=== PATIENT | female | born 1980 | race African-American/Black ===

== ENCOUNTER 2022-07-23 00:41 | Emergency (ER) | payer SELFPAY ==
[2022-07-23 02:09] LABS: Barbiturates NEGATIVE (NEGATIVE); Benzodiazepines NEGATIVE (NEGATIVE); Cocaine NEGATIVE (NEGATIVE); METHAMPHETAM NEGATIVE (NEGATIVE); Methadone NEGATIVE (NEGATIVE); Opiates NEGATIVE (NEGATIVE); Phencyclidine NEGATIVE (NEGATIVE); THC Cannibis NEGATIVE (NEGATIVE)
[2022-07-23 02:16] LABS: Absolute Lymphocytes (CBC) 3.2 K/uL (0.7-4.9); Hematocrit 41.5 % (36.0-45.0); Lymphocytes % 47.5 % (15.3-44.8); MCV 97.7 fL (80-100); MPV 6.5 fL (7.6-11.3); RBC Red Blood Cell Count 4.25 M/uL (3.86-4.86)
[2022-07-23 02:19] LABS: Protime INR 1.01
[2022-07-23 02:32] LABS: ALT/SGPT 31 U/L (13-56); AST/SGOT 24 U/L (15-37); Albumin 3.9 g/dL (3.4-5.0); Alkaline Phosphatase 78 U/L (45-117); BUN Blood Urea Nitrogen 9 mg/dL (7-18); Bicarbonate 27 mmol/L (21-32); Bilirubin Direct 0.2 mg/dL (0-0.2); Bilirubin Total 0.6 mg/dL (0.2-1.0); Glomerular Filtration Rate 99 ml/min (=/>90); Glucose Level 94 mg/dL (74-106); Potassium 4.3 mmol/L (3.5-5.1); Sodium Level 142 mmol/L (136-145)
--- NOTE | 2022-07-23 04:06 | ER ---
Nurse's Notes [facility] Name: Laura Blake Age: 42 yrs Sex: Female : 1980 Arrival Date: 07/23/2022 Time: 00:52 Bed 18 Private MD: Diagnosis: Alcohol abuse with intoxication Presentation: 07/23 00:50 Chief complaint: Patient states: PT STATES SHE IS SO TIRED AND OVERWHELMED. FEELS LIKE jj7 SHE IS THE DISAPPOINTMENT OF THE FAMILY. SHE KNEW SHE WAS GOING TO BREAK AND SHE WAS WAITING TO SEE A PSYCHIATRIST AFTER THE NEW YEAR IN JULY. STATES SHE HAS BEEN DRINKING MORE THAN USUAL AND WHEN SHE DRINKS SHE DOESN'T NOW WHAT SHE DOES. STATES " I DID NOT WANT TO BE HERE ANY MORE WHAT'S THE POINT OF BEING HERE SINCE I'M A BURDEN ON MY FAMILY". PT HASN'T STATED VERBALLY SHE WANTED TO OR KILL HERSELF. EMS states: EMS STATES DISPATCH GOT A CALL FROM /SIG OTHER THAT SHE CALLED HIM AND TOLD HIM SHE DIDN'T WANT TO BE HERE ANY MORE AND HUNG UP THE PHONE. THEY STATE WHEN THEY ARRIVED AT HER RESIDENCE SHE WAS ONLY RESPONSE TO PAINFUL STIMULI WITH A GCS OF 9. STATES THERE WHERE PILLS AND COULD HAVE BEEN A POSSIBLE OVERDOSE. Coronavirus screen: At this time, the client does not indicate any symptoms associated with coronavirus-19. Ebola Screen: No symptoms or risks identified at this time. Initial Sepsis Screen: Does the patient meet any 2 criteria? No. Patient's initial sepsis screen is negative. Does the patient have a suspected source of infection? No. Patient's initial sepsis screen is negative. Risk Assessment: Do you want to hurt yourself or someone else? Patient reports desire/thoughts of hurting themselves or someone else. Provider notified. Onset of symptoms is unknown. Care prior to arrival: IV initiated. Glucose check: 109. 00:50 Method Of Arrival: EMS: [facility] jj7 00:50 Acuity: ALEX 2 jj7 Triage Assessment: 00:50 General: Appears distressed, Behavior is anxious, crying, Smells of alcohol, Reports jj7 Denies. Neuro: Reports. Historical: - Allergies: 01:34 Geodon; jj7 01:34 Zyprexa; jj7 - PMHx: 01:34 Anxiety; Depressive disorder; jj7 - PSHx: 01:34 section; jj7 - Immunization history:: Client reports having NOT received the Covid vaccine. Flu vaccine is not up to date. - Social history:: Smoking status: Patient reports the use of cigarette tobacco products, smokes 1.5 packs per day, Patient uses alcohol, on a daily basis. patient/guardian reports recent binge of alcohol consumption. Screenin:09 [facility] ED Fall Risk Assessment (Adult) History of falling in the last 3 months, jj7 including since admission No falls in past 3 months (0 pts) Confusion or Disorientation No (0 pts) Intoxicated or Sedated Yes (3 pts) Impaired Gait Yes (1 pt) Mobility Assist Device Used No (0 pt) Altered Elimination No (0 pt) Score/Fall Risk Level 3 or more points = High Risk Oriented to surroundings, Maintained a safe environment, Provided non-skid footwear, Implemented a Fall Risk Plan of Care, Utilized family, sitter, or virtual sluice tender as indicated. Abuse screen: Denies threats or abuse. Nutritional screening: No deficits noted. Tuberculosis screening: No symptoms or risk factors identified. Assessment: 00:50 Reassessment: PT STATES SHE REFUSES TO ANSWER ANY QUESTIONS ON IF SHE TOOK ANY PILLS jj7 WITH HER ETOH UNTIL FAMILY MEMBERS ARE PRESENT. Pain: Denies pain. 01:23 General: Smells of alcohol. tw5 02:55 Reassessment: DR SAUCEDO STATES IF PT STATES SHE IS NOT SUICIDAL, HAS SOMEWHERE SAFE TO jj7 GO. PT CAN BE DISCHARGED. 03:00 Reassessment: MOTHER, BROTHER AND SON AT BEDSIDE TO SPEAK WITH PT. MOTHER AD BROTHER jj7 STEP OUT THE ROOM TO INFORM THIS NURSE AND PA PAGE THAT PT IS SUICIDAL AND THAT SHE NEEDS MORE INTENSIVE HELP AND NEEDS ADMISSION. THEY STATE SHE TOLD HER MALE FRIEND SHE TOOK PILLS LACES IN [employer]. SHE HAS BEEN SEEING PSYCHIATRIC HELP FOR AT LEAST 12 YRS. 04:06 Reassessment: PT STATES SHE WANTS TO GO HOME. SHE IS NOT SUICIDAL AND HAS NOT jj7 INTENTIONS ON HARMING HERSELF. DR SAUCEDO NOW AT BESIDE WITNESS. PT TELL DR SAUCEDO SHE IS NOT SUICIDAL, DOES NOT WANT TO HARM HERSELF AND HAS SOMEWHERE SAFE TO GO. STATES SHE WILL GO TO HER HOME AND HER BOYFRIEND WILL BE STAYING WITH HER. FAMILY INFORMED. FAMILY AT BEDSIDE TO TAKE PT HOME. Vital Signs: 00:50 BP 129 / 86; Pulse 75; Resp 21; Temp 98.2; Pulse Ox 100% ; Weight 61.23 kg; Height 5 jj7 ft. 4 in. (162.56 cm); Pain 0/10; 04:19 BP 124 / 79; Pulse 71; Resp 16; Pulse Ox 100% ; Pain 0/10; jj7 00:50 Body Mass Index 23.17 (61.23 kg, 162.56 cm) jj7 ED Course: 00:50 Arm band placed on right wrist. Patient placed in an exam room, on a stretcher, Patient jj7 PT PUT IN A PAPER SCRUB TOP. REFUSED PAPER SCRUB BOTTOMS. PT CHECKED AND NO ITEM OR OBJECTS FOUND. ALL PERSONALLY BELONGINGS REMOVED FROM ROOM. 00:50 Patient has correct armband on for positive identification. Bed in low position. Side jj7 rails up X2. Warm blanket given. Verbal reassurance given. 00:52 Patient arrived in ED. vc1 00:52 Gadiel Garcias PA is PHCP. cp 00:52 Rain Saucedo MD is Attending Physician. cp 01:17 Jerri Mora, LAINE is Primary Nurse. jj7 01:34 Triage completed. jj7 01:52 Inserted saline lock: 20 gauge in right antecubital area, using aseptic technique. jj7 Blood collected. 02:12 One-on-one care X 15 minutes. jj7 02:15 Acetaminophen Sent. jj7 02:15 Basic Metabolic Panel Sent. jj7 02:15 CBC with Diff Sent. jj7 02:15 ETOH Level Sent. jj7 02:15 Hepatic Function Sent. jj7 02:15 PT-INR Sent. jj7 02:15 Ptt, Activated Sent. jj7 02:15 Salicylate Sent. jj7 04:19 No provider procedures requiring assistance completed. IV discontinued, intact, jj7 bleeding controlled, No redness/swelling at site. Pressure dressing applied. Administered Medications: No medications were administered Medication: 04:19 VIS not applicable for this client. jj7 Outcome: 04:05 Discharge ordered by . sp3 04:19 Discharged to home ambulatory, with family. jj7 04:19 Condition: stable 04:19 Discharge instructions given to patient, family, Instructed on discharge instructions, follow up and referral plans. safety practices, Demonstrated understanding of instructions, follow-up care. 04:21 Patient left the ED. jj7 Signatures: Gadiel Garcias PA PA cp Patel, Setul, MD MD sp3 Dulce Maria Liz tw5 Jasmyne Chester RN RN vc1 Jerri Mora RN RN jj7
--- NOTE | 2022-07-23 04:06 | EDPHYS ---
Physician Documentation [facility] Name: Laura Blake Age: 42 yrs Sex: Female : 1980 Arrival Date: 07/23/2022 Time: 00:52 Bed 18 Private MD: ED Physician Rain Saucedo HPI: 07/23 00:55 This 42 yrs old Female presents to ER via EMS with complaints of Feeling Overwhelmed. cp 00:55 The patient presents to the emergency department with alcohol intoxication. Past cp psychiatric history: Prior diagnosis: depression. Associated signs and symptoms: Pertinent negatives: abdominal pain, chest pain, delusions, fever, hallucinations, paranoia. Historical: - Allergies: 01:34 Geodon; jj7 01:34 Zyprexa; jj7 - PMHx: 01:34 Anxiety; Depressive disorder; jj7 - PSHx: 01:34 section; jj7 - Immunization history:: Client reports having NOT received the Covid vaccine. Flu vaccine is not up to date. - Social history:: Smoking status: Patient reports the use of cigarette tobacco products, smokes 1.5 packs per day, Patient uses alcohol, on a daily basis. patient/guardian reports recent binge of alcohol consumption. ROS: 01:00 Constitutional: Negative for body aches, chills, fever, poor PO intake. cp 01:00 Eyes: Negative for injury, pain, redness, and discharge. cp 01:00 Neck: Negative for pain with movement, pain at rest, stiffness. 01:00 Cardiovascular: Negative for chest pain, edema, palpitations. 01:00 Respiratory: Negative for cough, shortness of breath, wheezing. 01:00 Abdomen/GI: Negative for abdominal pain, nausea, vomiting, and diarrhea. 01:00 Neuro: Negative for altered mental status, headache, weakness. 01:00 Psych: Positive for depression, Negative for auditory hallucinations, visual hallucinations. 01:00 All other systems are negative. Exam: 01:05 Constitutional: The patient appears in no acute distress, alert, awake, non-toxic, well cp developed, well nourished. 01:05 Head/Face: Normocephalic, atraumatic. cp 01:05 Eyes: Periorbital structures: appear normal, Conjunctiva: normal, no exudate, no injection, Sclera: no appreciated abnormality, Lids and lashes: appear normal, bilaterally. 01:05 ENT: External ear(s): are unremarkable, Nose: is normal, Mouth: Lips: moist, Oral mucosa: pink and intact, moist, Posterior pharynx: Airway: no evidence of obstruction, patent. 01:05 Neck: ROM/movement: is normal, is supple, without pain, no range of motions limitations. 01:05 Chest/axilla: Inspection: normal. 01:05 Cardiovascular: Rate: normal, Rhythm: regular. 01:05 Respiratory: the patient does not display signs of respiratory distress, Respirations: normal, no use of accessory muscles, no retractions, labored breathing, is not present, Breath sounds: are clear throughout, no decreased breath sounds, no stridor, no wheezing. 01:05 Abdomen/GI: Exam negative for discomfort, distension, guarding, Inspection: abdomen appears normal. 01:05 Neuro: Orientation: to person, place \T\ time. Mentation: is normal, Motor: moves all fours, strength is normal. 01:05 Psych: Behavior/mood is depressed, Affect is animated, Judgement / Insight is impaired. 02:27 ECG was reviewed by the Attending Physician. Vital Signs: 00:50 BP 129 / 86; Pulse 75; Resp 21; Temp 98.2; Pulse Ox 100% ; Weight 61.23 kg; Height 5 jj7 ft. 4 in. (162.56 cm); Pain 0/10; 04:19 BP 124 / 79; Pulse 71; Resp 16; Pulse Ox 100% ; Pain 0/10; jj7 00:50 Body Mass Index 23.17 (61.23 kg, 162.56 cm) jj7 MDM: 00:53 Patient medically screened. cp 07/23 00:53 Order name: Acetaminophen; Complete Time: 02:36 cp 07/23 02:36 Interpretation: Reviewed. cp 07/23 00:53 Order name: Basic Metabolic Panel; Complete Time: 02:36 cp 07/23 02:36 Interpretation: Normal except: CL 109. cp 07/23 00:53 Order name: CBC with Diff; Complete Time: 02:21 cp 07/23 02:21 Interpretation: Normal except: MPV 6.5; ARLETTE% 40.8; LYM% 47.5. cp 07/23 00:53 Order name: ETOH Level; Complete Time: 02:36 cp 07/23 02:37 Interpretation: Abnormal: ETOH 222. cp 07/23 00:53 Order name: Hepatic Function; Complete Time: 02:36 cp 07/23 02:37 Interpretation: Normal except: GLOB 4.1; A/G 1.0. cp 07/23 00:53 Order name: PT-INR; Complete Time: 02:21 cp 07/23 00:53 Order name: Ptt, Activated; Complete Time: 02:21 cp 07/23 00:53 Order name: Salicylate; Complete Time: 02:36 cp 07/23 00:53 Order name: Urine Drug Screen; Complete Time: 02:21 cp 07/23 02:22 Interpretation: Reviewed. cp 07/23 00:53 Order name: EKG; Complete Time: 00:53 cp 07/23 00:53 Order name: EKG - Nurse/Tech; Complete Time: 02:32 cp 07/23 00:53 Order name: IV Saline Lock; Complete Time: 02:13 cp 07/23 00:53 Order name: Labs collected and sent; Complete Time: 02:13 cp 07/23 01:46 Order name: Urine --Ancillary (enter results); Complete Time: 02:21 mw2 07/23 02:22 Interpretation: Reviewed. cp 07/23 00:53 Order name: Suicide Precautions; Complete Time: 02:15 cp 07/23 00:53 Order name: Suicide Screening ([place]) cp 07/23 00:53 Order name: Urine Dipstick-Ancillary (obtain specimen); Complete Time: 01:45 cp 07/23 00:53 Order name: Urine Test (obtain specimen); Complete Time: 01:45 cp EC:27 Rate is 68 beats/min. Rhythm is regular. UT interval is normal. QRS interval is normal. cp QT interval is normal. T waves are Inverted in lead aVR. Interpreted by me. Reviewed by me. Administered Medications: No medications were administered Disposition: 04:04 I agree with the assessment and plan of care. Patient is no longer suicidal, no sp3 clinically intoxicated, ambulates, and contracts for her safety. She denies HI/SI and is not psychotic. We will discharge patient home as per her request instructions that she may return at any time if she wants to seek further mental health.. Disposition Summary: 07/23/22 04:05 Discharge Ordered Location: Home sp3 Condition: Stable sp3 Diagnosis - Alcohol abuse with intoxication sp3 Followup: sp3 - With: Private Physician - When: Upon discharge from the Emergency Department - Reason: Continuance of care Discharge Instructions: - Discharge Summary Sheet sp3 - Alcohol Intoxication sp3 Forms: - Medication Reconciliation Form sp3 - Thank You Letter sp3 - Antibiotic Education sp3 - Work release form mw2 - Prescription Opioid Use sp3 Signatures: Dispatcher [employer] EDMS Gadiel Garcias PA PA cp Patel, Setul, MD MD sp3 Jerri Mora RN RN jj7
[2022-07-23 04:36] VITALS: TEMP 98.2; O2SAT 100
[2022-07-23 04:41] VITALS: BP 124/79
--- NOTE | 2022-07-23 16:02 | EKG ---
Test Date: 2022-07-23 Test Time: 02:22:09 Wildlife Protector: RV MEASUREMENT RESULTS: Intervals: Rate: 68 MO: 148 QRSD: 80 QT: 426 QTc: 452 Sunset: P: 73 MO: 148 QRS: 88 T: 54 INTERPRETIVE STATEMENTS: Normal sinus rhythm Normal ECG No previous ECG available for comparison Electronically Signed On 07-23-22 16:01:05 [employer] OPERATOR by Sylvain Hurt
[2022-07-25 11:16] LABS: Urine Blood Trace-intact (Negative); Urine Glucose Negative (Negative); Urine Protein Negative (Negative); Urine pH 6.5 (5.0-7.0)
== END 2022-07-23 04:21 | disposition home or self-care (01) ==
LOC: ER 00:41
DX: F10.129 Alcohol abuse with intoxication, unspecified (principal)
CPT/HCPCS: 36415; 80048; 80076; 80307; 80320; 80329; 81003; 81025; 85025; 85610; 85730; 93005; 99284

== ENCOUNTER 2024-03-19 14:18 | Emergency (ER) | payer BC ==
[2024-03-19] MEDS ORDERED: KETOROLAC 30 MG/ML INJ ONE (14:37)
--- NOTE | 2024-03-19 15:46 | RAD REPORT ---
EXAM DESCRIPTION: RAD - Pelvis - 03/19/2024 3:14 pm CLINICAL HISTORY: Pelvic pain FINDINGS: No fracture or dislocation is seen. Minimal osteoarthritis involves the hips mainly consisting of subchondral sclerosis
--- NOTE | 2024-03-19 15:48 | RAD REPORT ---
EXAM DESCRIPTION: RAD - Femur Right - 03/19/2024 3:14 pm CLINICAL HISTORY: Leg pain FINDINGS: No fracture is seen. 4 centimeter calcific lesion proximal tibia. 1 centimeter calcific lesion distal femur. These probabl y represent infarcts. Enchondromas can have a similar appearance but or probably less likely. Follow up x-ray knee recommended 3 months for re-evaluation
--- NOTE | 2024-03-19 15:51 | ER ---
Nurse's Notes [facility] Name: Laura Blake Age: 43 yrs Sex: Female : 1980 Arrival Date: 03/19/2024 Time: 14:18 Bed 18 Private MD: Diagnosis: Pain in right hip Presentation: 03/19 14:38 Chief complaint: Patient states: she woke up Thursday03/16/24 with right upper ap3 leg/pelvis pain. patient complains of pain 8/10 on the pain scale at this time. Coronavirus screen: At this time, the client does not indicate any symptoms associated with coronavirus-19. Ebola Screen: No symptoms or risks identified at this time. Initial Sepsis Screen: Does the patient meet any 2 criteria? HR > 90 bpm. Does the patient have a suspected source of infection? No. Patient's initial sepsis screen is negative. Risk Assessment: Do you want to hurt yourself or someone else? Patient reports no desire to harm self or others. Onset of symptoms was March 16, 2024. 14:38 Method Of Arrival: Ambulatory ap3 14:38 Acuity: ALEX 4 ap3 Triage Assessment: 14:40 General: Appears uncomfortable, Behavior is calm, cooperative, appropriate for age. ap3 Pain: Complains of pain in pelvis and right hip Pain currently is 8 out of 10 on a pain scale. Neuro: Level of Consciousness is awake, alert, obeys commands, Oriented to person, place, time, situation, Appropriate for age. Cardiovascular: Patient's skin is warm and dry. Respiratory: Airway is patent Respiratory effort is even, unlabored, Respiratory pattern is regular, symmetrical. Historical: - Allergies: 14:27 Geodon; ld1 14:27 Zyprexa; ld1 - PMHx: 14:27 Anxiety; depressive disorder; ld1 - PSHx: 14:27 section; ld1 - Immunization history:: Adult Immunizations up to date. - Infectious Disease History:: Denies. - Social history:: Smoking status: Patient denies any tobacco usage or history of. Screenin:27 [facility] ED Fall Risk Assessment (Adult) History of falling in the last 3 months, ld1 including since admission No falls in past 3 months (0 pts) Confusion or Disorientation No (0 pts) Intoxicated or Sedated No (0 pts) Impaired Gait No (0 pts) Mobility Assist Device Used No (0 pt) Altered Elimination No (0 pt) Score/Fall Risk Level 0 - 2 = Low Risk Oriented to surroundings, Maintained a safe environment, Educated pt \T\ family on fall prevention, incl call for assistance when getting out of bed, Assessed \T\ reinforced patient's understanding of fall precautions, Provided non-skid footwear, Hourly rounding (assess needs \T\ fall precautionary measures) done, Used ambulatory aids as needed (educated on \T\ assisted with), Used gait belt as appropriate. Abuse screen: Denies threats or abuse. Denies injuries from another. Nutritional screening: No deficits noted. Tuberculosis screening: No symptoms or risk factors identified. Assessment: 14:27 General: Appears in no apparent distress. uncomfortable, Behavior is calm, cooperative, ld1 appropriate for age. Pain: Complains of pain in right hip Pain does not radiate. Pain currently is 9 out of 10 on a pain scale. Quality of pain is described as sharp, shooting, throbbing, Pain began suddenly, Is continuous. Neuro: Level of Consciousness is awake, alert, obeys commands, Oriented to person, place, time, situation, Appropriate for age. Cardiovascular: Capillary refill < 3 seconds Patient's skin is warm and dry. Respiratory: Airway is patent Respiratory effort is even, unlabored. GI: Abdomen is round non-distended. : No signs and/or symptoms were reported regarding the genitourinary system. EENT: No signs and/or symptoms were reported regarding the EENT system. Derm: No signs and/or symptoms reported regarding the dermatologic system. Musculoskeletal: No signs and/or symptoms reported regarding the musculoskeletal system. 15:05 Reassessment: Patient appears in no apparent distress at this time. No changes from ld1 previously documented assessment. Patient and/or family updated on plan of care and expected duration. Pain level reassessed. 15:59 Reassessment: Patient appears in no apparent distress at this time. No changes from ld1 previously documented assessment. Patient and/or family updated on plan of care and expected duration. Pain level reassessed. Vital Signs: 14:38 BP 138 / 94; Pulse 104; Resp 17; Temp 97.7; Pulse Ox 100% ; ap3 14:38 Height 5 ft. 4 in. ; Pain 8/10; ap3 15:05 BP 130 / 89; Pulse 85; Resp 18; Pulse Ox 100% on R/A; ld1 15:59 BP 123 / 83; Pulse 89; Resp 18; Pulse Ox 100% on R/A; ld1 14:38 Pain Scale: Adult ap3 ED Course: 14:21 Patient arrived in ED. im 14:21 Verito Villegas FNP-C [facility]. kb 14:22 Jigar Crouch MD is Attending Physician. kb 14:24 Silvia Bruce, RN is Primary Nurse. ld1 14:27 Patient has correct armband on for positive identification. Placed in gown. Bed in low ld1 position. Call light in reach. Side rails up X2. athletic monitor on. Pulse ox on. NIBP on. Door closed. Noise minimized. Warm blanket given. 14:27 No provider procedures requiring assistance completed. ld1 14:40 Triage completed. ap3 15:16 Femur Right XRAY In Process Unspecified. EDMS 15:16 Pelvis XRAY In Process Unspecified. EDMS 16:05 Arm band placed on right wrist. ld1 16:05 Patient did not have IV access during this emergency room visit. ld1 Administered Medications: 14:42 Drug: Ketorolac IM 30 mg IM once Route: IM; Site: left deltoid; ld1 15:15 Follow up: Response: No adverse reaction ld1 Medication: 16:05 VIS not applicable for this client. ld1 Outcome: 15:50 Discharge ordered by . kb 16:05 Discharged to home ambulatory, ld1 16:05 Condition: stable 16:05 Discharge instructions given to patient, Instructed on discharge instructions, follow up and referral plans. medication usage, Demonstrated understanding of instructions, follow-up care, medications, Prescriptions given X 2, 16:05 Patient left the ED. ld1 Signatures: Dispatcher [employer] EDMS Verito Villegas FNP-C FNP-Ckb Prokisch, Amanda, RN RN ap3 Silvia Bruce, LAINE RN ld1 Margi Evans im
--- NOTE | 2024-03-19 15:51 | EDPHYS ---
Physician Documentation [facility] Name: Laura Blake Age: 43 yrs Sex: Female : 1980 Arrival Date: 03/19/2024 Time: 14:18 Bed 18 Private MD: ED Physician Jigar Crouch HPI: 03/19 14:36 This 43 yrs old Black Female presents to ER via Unassigned with complaints of Hip Pain. kb 14:36 Pt is a 43 year old female who presents for right hip pain that started upon waking 4 kb days ago. Denies injury or trauma. States pain radiates into groin. Pain is intermittent. . Historical: - Allergies: 14:27 Geodon; ld1 14:27 Zyprexa; ld1 - PMHx: 14:27 Anxiety; depressive disorder; ld1 - PSHx: 14:27 section; ld1 - Immunization history:: Adult Immunizations up to date. - Infectious Disease History:: Denies. - Social history:: Smoking status: Patient denies any tobacco usage or history of. ROS: 14:36 Constitutional: As per HPI kb Exam: 14:36 Constitutional: This is a well developed, well nourished patient who is awake, alert, kb and in no acute distress. Head/Face: Normocephalic, atraumatic. ENT: Moist Mucous membranes Cardiovascular: Regular rate Respiratory: Respirations even and unlabored. No increased work of breathing. Talking in full sentences Skin: Warm, dry with normal turgor. Normal color. Neuro: Awake and alert, GCS 15, oriented to person, place, time, and situation. Moves all extremities. Normal gait. 14:36 Musculoskeletal/extremity: Extremities: grossly normal except: noted in the right hip: pain, ROM: intact in all extremities, Circulation is intact in all extremities. Sensation intact. Weight bearing: able to fully bear weight, Vital Signs: 14:38 BP 138 / 94; Pulse 104; Resp 17; Temp 97.7; Pulse Ox 100% ; ap3 14:38 Height 5 ft. 4 in. ; Pain 8/10; ap3 15:05 BP 130 / 89; Pulse 85; Resp 18; Pulse Ox 100% on R/A; ld1 15:59 BP 123 / 83; Pulse 89; Resp 18; Pulse Ox 100% on R/A; ld1 14:38 Pain Scale: Adult ap3 MDM: 14:22 Patient medically screened. kb 14:37 Differential diagnosis: strain, fracture. Data reviewed: vital signs, nurses notes. kb 15:50 Counseling: I had a detailed discussion with the patient and/or guardian regarding the kb historical points, exam findings, and any diagnostic results supporting the discharge/admit diagnosis, radiology results, the need for outpatient follow up, a orthopedic surgeon, to return to the emergency department if symptoms worsen or persist or if there are any questions or concerns that arise at home. 03/19 14:31 Order name: Femur Right XRAY; Complete Time: 15:49 kb 03/19 14:31 Order name: Pelvis XRAY; Complete Time: 15:48 kb Administered Medications: 14:42 Drug: Ketorolac IM 30 mg IM once Route: IM; Site: left deltoid; ld1 15:15 Follow up: Response: No adverse reaction ld1 Disposition: 16:23 Co-signature as Attending Physician, Jigar Crouch MD I reviewed the patient's care rt provided by the Advanced Practice Provider and agree with the diagnosis and treatment plan. Disposition Summary: 03/19/24 15:50 Discharge Ordered Notes: Location: Home kb Condition: Stable kb Diagnosis - Pain in right hip kb Followup: kb - With: Emergency Department - When: As needed - Reason: Worsening of condition Followup: kb - With: Private Physician - When: 2 - 3 days - Reason: Recheck today's complaints, Continuance of care, Re-evaluation by your physician Discharge Instructions: - Discharge Summary Sheet kb - Musculoskeletal Pain kb Forms: - Medication Reconciliation Form kb - Antibiotic Education kb - Prescription Opioid Use kb - Patient Portal Instructions kb - Leadership Thank You Letter kb Prescriptions: - Diclofenac Sodium 75 mg Oral tablet, delayed release (enteric coated) - take 1 tablet ORAL route 2 times per day As needed; 30 tablet; Refills: 0, kb Product Selection Permitted - orphenadrine citrate 100 mg Oral Tablet Sustained Release - take 1 tablet ORAL route 2 times per day As needed; 20 tablet; Refills: 0, kb Product Selection Permitted Signatures: Dispatcher [employer] Verito Mcdowell FNP-C FNP-Ckb Sims, Lauren, RN RN ld1 Jigar Crouch MD MD rt Corrections: (The following items were deleted from the chart) 14:32 14: Femur Right+RAD.RAD.BRZ ordered. EDMS EDMS : Pelvis+RAD.RAD.BRZ ordered. EDMS EDMS
[2024-03-19 16:23] VITALS: TEMP 97.7; O2SAT 100
[2024-03-19 16:25] VITALS: BP 123/83
== END 2024-03-19 16:05 | disposition home or self-care (01) ==
LOC: ER 14:18
DX: M25.551 Pain in right hip (principal)
CPT/HCPCS: 72170; 96372; 99284

== ENCOUNTER 2024-11-10 05:06 | Emergency (ER) | payer BC ==
[2024-11-10] MEDS ORDERED: LIDOCAINE 1% 20 ML MDV ONE (05:30)
[2024-11-10] MEDS ORDERED: DIAZEPAM 5 MG TABLET ONE (05:52)
--- NOTE | 2024-11-10 06:28 | EDPHYS ---
Physician Documentation [facility] Name: Laura Balke Age: 44 yrs Sex: Female : 1980 Arrival Date: 11/10/2024 Time: 05:06 Bed 6 Private MD: ED Physician Hal Gamboa HPI: 11/10 06:23 This 44 yrs old Black Female presents to ER via Ambulatory with complaints of Abscess. rn 06:23 The patient presents with an abscess of the right labia. Description: The affected area rn is approximately 3 cm(s), erythematous, fluctuant, tense. Onset: The symptoms/episode began/occurred 2 day(s) ago. Severity of symptoms: At their worst the symptoms were moderate, in the emergency department the symptoms are unchanged. The patient has experienced a previous episode. Patient reports swelling and pain to the right labia that started 2 days ago. Feels like it started as an ingrown hair and now has grown. No pain or swelling at anus or abutting anus. No vaginal discharge. No fever or chills. Has had this once before and went away with warm compresses. Warm compresses not helping this time so came in for evaluation.. 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 - Infectious Disease History:: Denies. - Social history:: Smoking status: Patient reports the use of cigarette tobacco products, smokes one-half pack cigarettes per day, Reported history of juuling and/or vaping. - Family history:: not pertinent. - Hospitalizations: : No recent hospitalization is reported. ROS: 06:23 Constitutional: Negative for fever, chills, and weight loss, : Positive for swelling rn and abscess to right labia Exam: 06:23 Constitutional: This is a well developed, well nourished patient who is awake, alert, rn appears uncomfortable Female : External to right labia there is 3 cm fluctuance with surrounding induration and erythema. Does not abut anus. Does not extend inside vagina. Vital Signs: 05:20 Height 5 ft. 4 in. ; vc1 06:35 BP 115 / 80; Pulse 81; Resp 14; Temp 98.1; Pulse Ox 100% ; vc1 [place] Coma Score: 06:04 Eye Response: spontaneous(4). Motor Response: obeys commands(6). Verbal Response: dd2 oriented(5). Total: 15. Procedures: 06:23 I \T\ D: Incision and drainage was performed for an abscess of the right Labia Prepped rn with Betadine, Anesthetized with 5 ml's 1% Lidocaine. Incised with #11 blade. Drained moderate amount purulent fluid. serosanguinous fluid. Loculations removed. Abscess cavity explored. Packed with iodoform gauze, Dressing: sterile 4x4 gauze, the patient tolerated the procedure well. MDM: 05:12 Medical Screening Exam initiated rn 06:23 Differential diagnosis: abscess, cellulitis. Data reviewed: vital signs, nurses notes, rn and as a result, I will discharge patient. Counseling: I had a detailed discussion with the patient and/or guardian regarding the historical points, exam findings, and any diagnostic results supporting the discharge/admit diagnosis, the need for outpatient follow up, to return to the emergency department if symptoms worsen or persist or if there are any questions or concerns that arise at home. Response to treatment: the patient's symptoms have markedly improved after treatment. Special discussion: I discussed with the patient/guardian in detail that at this point there is no indication for admission to the hospital. It is understood, however, that if the symptoms persist or worsen the patient needs to return immediately for re-evaluation. Based on the history and exam findings, there is no indication for further emergent testing or inpatient evaluation. I discussed with the patient/guardian the need to see the OB Gyne specialist for further evaluation of the symptoms. ED course: Discussed need for wound packing and dressing changes, given return precautions and needs to follow-up with gynecology. Will discharge home with antibiotics. I have personally reviewed all of the results, including but not limited to blood tests and imaging deemed necessary to safely discharge this patient at this time. All results given to and printed out for patient. I personally went over all the results with the patient and answered all questions. Patient will follow-up with PCP and or specialist as discussed. Return precautions given and understood.. 11/10 05:27 Order name: Incision \T\ Drainage Setup; Complete Time: 05:30 rn Administered Medications: 05:56 Drug: Diazepam PO 5 mg PO once Route: PO; lg3 06:37 Follow up: Response: No adverse reaction dd2 06:31 Drug: Lidocaine Infiltration (1 %) 1 vials 20 ml Infiltration once; to bedside {Note: vc1 administered by Dr. 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 - Prescription Opioid Use rn - Patient Portal Instructions rn - Leadership Thank You Letter rn - Work release form vc1 Prescriptions: - Tramadol 50 mg Oral Tablet - take 1 tablet ORAL route every 8 hours as needed; 12 tablet; Refills: 0, rn Product Selection Permitted - Bactrim DS 800-160 mg Oral Tablet - take 1 tablet ORAL route every 12 hours for 10 days; 20 tablet; Refills: 0, rn Product Selection Permitted - Doxycycline Monohydrate 100 mg Oral Tablet - take 1 tablet ORAL route every 12 hours for 10 days; 20 tablet; Refills: 0, rn Product Selection Permitted Signatures: Hal Gamboa MD MD rn Able, Lacie RN RN lg3 Jasmyne Chester RN RN 1 KG LIU RN dd2
--- NOTE | 2024-11-10 06:28 | ER ---
Nurse's Notes [facility] Name: Laura Blake Age: 44 yrs Sex: Female : 1980 Arrival Date: 11/10/2024 Time: 05:06 Bed 6 Private MD: Diagnosis: Right labial abscess Presentation: 11/10 05:20 Chief complaint: Patient states: ingrown hair turned into a boil. Coronavirus screen: vc1 Client denies travel out of the [place] in the last 14 days. At this time, the client does not indicate any symptoms associated with coronavirus-19. Ebola Screen: Patient negative for fever greater than or equal to 101.5 degrees Fahrenheit, and additional compatible Ebola Virus Disease symptoms Patient denies exposure to infectious person. Patient denies travel to an Ebola-affected area in the 21 days before illness onset. No symptoms or risks identified at this time. Initial Sepsis Screen: Does the patient meet any 2 criteria? No. Patient's initial sepsis screen is negative. Does the patient have a suspected source of infection? No. Patient's initial sepsis screen is negative. Risk Assessment: Do you want to hurt yourself or someone else? Patient reports no desire to harm self or others. Onset of symptoms was November 10, 2024. Care prior to arrival: None. Activity prior to arrival: None. 05:20 Method Of Arrival: Ambulatory vc1 05:20 Acuity: ALEX 4 vc1 Triage Assessment: 05:54 General: Appears in no apparent distress. uncomfortable, slender, Behavior is vc1 cooperative, agitated. Pain: Complains of pain in right labia minora Pain currently is 9 out of 10 on a pain scale. Alleviated by repositioning, Noted to be grimacing, resistant to movement. EENT: No deficits noted. No signs and/or symptoms were reported regarding the EENT system. Neuro: Level of Consciousness is awake, alert, obeys commands, Oriented to person, place, time, situation, none. Cardiovascular: No deficits noted. Capillary refill < 3 seconds Patient's skin is warm and dry. Respiratory: Airway is patent Respiratory effort is even, unlabored, Respiratory pattern is regular, symmetrical, Breath sounds are clear bilaterally. GI: No deficits noted. No signs and/or symptoms were reported involving the gastrointestinal system. : Reports pain on right labia. Derm: Abscess located on right labia minora is golf ball sized. Musculoskeletal: Circulation, motion, and sensation intact. Range of motion: intact in all extremities. 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 - Infectious Disease History:: Denies. - Social history:: Smoking status: Patient reports the use of cigarette tobacco products, smokes one-half pack cigarettes per day, Reported history of juuling and/or vaping. - Family history:: not pertinent. - Hospitalizations: : No recent hospitalization is reported. Screenin:24 [facility] ED Fall Risk Assessment (Adult) History of falling in the last 3 months, vc1 including since admission No falls in past 3 months (0 pts) Confusion or Disorientation No (0 pts) Intoxicated or Sedated No (0 pts) Impaired Gait No (0 pts) Mobility Assist Device Used No (0 pt) Altered Elimination No (0 pt) Score/Fall Risk Level 0 - 2 = Low Risk Oriented to surroundings, Maintained a safe environment, Educated pt \T\ family on fall prevention, incl call for assistance when getting out of bed, Hourly rounding (assess needs \T\ fall precautionary measures) done. Abuse screen: Denies threats or abuse. Nutritional screening: No deficits noted. Tuberculosis screening: No symptoms or risk factors identified. Assessment: 06:04 General: Appears uncomfortable, Behavior is cooperative, appropriate for age, anxious. dd2 Pain: Complains of pain in right labia minora and groin Pain does not radiate. Pain currently is 9 out of 10 on a pain scale. Neuro: No deficits noted. Level of Consciousness is awake, alert, obeys commands, Oriented to person, place, time, situation, Appropriate for age. Cardiovascular: No deficits noted. Patient's skin is warm and dry. Respiratory: No deficits noted. Airway is patent Respiratory effort is even, unlabored, Respiratory pattern is regular, symmetrical. GI: No deficits noted. No signs and/or symptoms were reported involving the gastrointestinal system. : No deficits noted. No signs and/or symptoms were reported regarding the genitourinary system. EENT: No deficits noted. No signs and/or symptoms were reported regarding the EENT system. Derm: Skin is healthy with good turgor, Skin is dry, Skin is normal, Wound noted right labia minora Abscess located on right labia minora is golf ball sized, Reports pain that is 9 out of 10 on a pain scale. RT LABIA MAJORA. Musculoskeletal: No deficits noted. No signs and/or symptoms reported regarding the musculoskeletal system. Circulation, motion, and sensation intact. Range of motion: intact in all extremities. Vital Signs: 05:20 Height 5 ft. 4 in. ; vc1 06:35 BP 115 / 80; Pulse 81; Resp 14; Temp 98.1; Pulse Ox 100% ; vc1 [place] Coma Score: 06:04 Eye Response: spontaneous(4). Motor Response: obeys commands(6). Verbal Response: dd2 oriented(5). Total: 15. ED Course: 05:09 Patient arrived in ED. [id number] 05:12 Hal Gamboa MD is Attending Physician. rn 05:22 Triage completed. vc1 05:24 Arm band placed on right wrist. vc1 05:26 Patient has correct armband on for positive identification. Bed in low position. Call vc1 light in reach. Provided Education on: plan of care. NIBP on. 06:04 Door closed. Noise minimized. Warm blanket given. Pillow given. Verbal reassurance dd2 given. 06:04 Patient did not have IV access during this emergency room visit. Patient maintains SpO2 dd2 saturation greater than 95% on room air. 06:27 Jacqueline Valle MD is Referral Physician. rn 06:32 Assist provider with I \T\ D: of an abscess on right RT LABIA MAJORA Set up I\T\D tray. dd 2 Performed by Hal Gamboa MD Wound packed. iodoform gauze, Dressing with ABD pad, 4X4s, Patient tolerated well. Administered Medications: 05:56 Drug: Diazepam PO 5 mg PO once Route: PO; lg3 06:37 Follow up: Response: No adverse reaction dd2 06:31 Drug: Lidocaine Infiltration (1 %) 1 vials 20 ml Infiltration once; to bedside {Note: vc1 administered by Dr. Gamboa.} Volume: 20 ml; Route: Infiltration; Medication: 05:25 VIS not applicable for this client. vc1 Outcome: 06:28 Discharge ordered by . rn 06:35 Condition: stable vc1 06:41 Discharged to home ambulatory, with family, vc1 06:41 Discharge instructions given to patient, Instructed on discharge instructions, follow up and referral plans. medication usage, wound care, Demonstrated understanding of instructions, follow-up care, medications, wound care, 06:45 Patient left the ED. vc1 Signatures: Hal Gmaboa MD MD rn Able, Lacie RN RN lg3 Keily [id number] Jasmyne Chester RN RN vc1 KG LIU RN RN dd2
[2024-11-10 06:51] VITALS: BP 115/80; TEMP 98.1; O2SAT 100
== END 2024-11-10 06:45 | disposition home or self-care (01) ==
LOC: ER 05:06
PROC: 0U9MXZZ Drainage of Vulva, External Approach (ICD-10-PCS; principal; 2024-11-10)
DX: N76.4 Abscess of vulva (principal)
CPT/HCPCS: 99283; 56405; J2003